=== PATIENT | female | born 1985 | race Caucasian/White ===

== ENCOUNTER 2017-10-20 09:35 | Inpatient (IN) | payer OTHER ==
[2017-10-20] MEDS ORDERED: TUBERCULIN PPD 5 TU/0.1ML SYRINGE (IN PATIENT USE ONLY) ID ONE ×2 (10:29→16:00)
[2017-10-20] MEDS ORDERED: METHYLERGONOVINE MALEATE 0.2 MG/1 ML AMP IM PRN (10:33)
[2017-10-20] MEDS ORDERED: WITCH HAZEL 50% (TUCKS) 40 PAD/JAR PAD TP PRN (10:33)
[2017-10-20] MEDS ORDERED: BENZOCAINE 28 GM HEMORRHOIDAL OINTMENT TP PRN (10:33)
[2017-10-20] MEDS ORDERED: ACETAMINOPHEN 325 MG TABLET (FP) PO PRN (10:33)
[2017-10-20] MEDS ORDERED: BISACODYL 10 MG SUPP.RECT RC PRN (10:33)
[2017-10-20] MEDS ORDERED: BENZOCAINE 20% 57 GM BOTTLE TP PRN (10:33)
[2017-10-20] MEDS ORDERED: IBUPROFEN 600 MG TABLET (FP) PO PRN (10:33)
--- NOTE | 2017-10-20 10:33 | HP ---
Past Medical History - Admission History Source: Patient, Medical Record Limitations to Obtaining History: No Limitations - Past Medical History Cardiovascular: No: HTN, ND Pulmonary: No: Asthma, COPD Gastrointestinal: No: GERD Hepatobiliary: No: Hepatitis B, Hepatitis C Renal/: No: UTI Reproductive: No: Ectopic , Fibroids, PID ...: 2 ...Para: 1 ...Term: 0 ...: 0 ...Spon : 0 ...Induced : 0 Heme/Onc: No: Anemia Infectious Disease: No: HIV, MRSA, STD's Psych: No: Bipolar, Depression Endocrine: No: Diabetes Insipidus, Diabetes Mellitus - Past Surgical History Past Surgical History: Yes: None Hx Myomectomy: No Hx Transabdominal Cerclage: No - Alcohol/Substance Use History of Substance Use: reports: None - Social History Usual Living Arrangement: Yes: With Spouse ADL: Independent History of Recent Travel: No Home Medications - Allergies Allergies/Adverse Reactions: Allergies Allergy/AdvReac Type Severity Reaction Status Date / Time Pertussis Vaccines Allergy Verified 10/13/17 20:51 - Home Medications Home Medications: Ambulatory Orders Vit #76/Iron,Carb/FA [Pnv 29-1 Tablet] 1 each PO DAILY 10/13/17 Review of Systems - Review of Systems Constitutional: reports: No Symptoms Eyes: reports: No Symptoms HENT: reports: No Symptoms Neck: reports: No Symptoms Cardiovascular: reports: No Symptoms Respiratory: reports: No Symptoms Gastrointestinal: reports: No Symptoms Genitourinary: reports: Other (contractions) Breasts: reports: No Symptoms Reported Musculoskeletal: reports: No Symptoms Integumentary: reports: No Symptoms Neurological: reports: No Symptoms Endocrine: reports: No Symptoms Hematology/Lymphatic: reports: No Symptoms Psychiatric: reports: No Symptoms Physical Exam - Maternity Constitutional: Yes: Well Nourished, No Distress, Calm Eyes: Yes: Conjunctiva Clear, EOM Intact HENT: Yes: Atraumatic, Normocephalic Neck: Yes: Supple, Trachea Midline Cardiovascular: Yes: Regular Rate and Rhythm Lungs: Clear to auscultation - Abdominal Exam/OB Number of Fetuses: Single Presentation: Vertex Contractions: Yes Regularity: Regular Intensity: Mod/Strong Category: I Accelerations: Uniform Decelerations: None - Vaginal Exam/OB Vaginal Bleediing: No Dilatation (cm): 9.5 Effacement (%): 100 Amniotic Membrane Status: Bulging Presentation: Vertex/Position Station: -1 - Physical Exam Psychiatric: Yes: Alert, Oriented Hemorrhage Risk Assessment - Risk Factors Medium Risk Factors: Yes: None High Risk Factors: Yes: None Risk Score: 1 Risk Level: Medium Risk Problem List - Problems (1) Active labor at term Code(s): [id number] - Assessment/Plan 32 y/o with SIUP at 39.5 weeks in active labor - AFVSS - FHTS cat 1 - active labor, expectant managment, anticipate - GBS negative
[2017-10-20] MEDS ORDERED: OXYTOCIN 20 UNITS in 0.9% NS 20 UNIT/1,000 ML INFUS.BAG IV SCH (10:45)
[2017-10-20 10:49] VITALS: BMI 29.4
[2017-10-20 11:15] LABS: BASOPHIL 0.3 % (0-2.0); MCH 32.8 pg (25.7-33.7); MCHC 34.8 g/dl (32.0-36.0); MEAN CELL VOLUME 94.2 fl (80-96); MEAN PLT VOLUME 8.3 fl (7.5-11.1); NEUTROPHILS 81.9 % (42.8-82.8); PLATELET COUNT 261 K/MM3 (134-434); WHITE BLOOD COUNT 8.9 K/mm3 (4.0-10.0)
[2017-10-20 11:28] LABS: INR 0.92 (0.82-1.09); PROTHROMBIN TIME (PATIENT) 10.4 SEC (9.98-11.88)
[2017-10-20 11:31] LABS: ACTIVATED PTT 27.7 SECONDS (26.9-34.4)
--- NOTE | 2017-10-20 11:34 | PN ---
Delivery - Delivery Vaginal Delivery: No Problems Type of Anesthesia: Local Episiotomy/Laceration: 2nd degree EBL (cc): 300 Delivery, Single - Stages of Labor Date of Delivery: 10/20/17 Time of Delivery: 11:13 Date Placenta Delivered: 10/20/17 Time Placenta Delivered: :16 Placenta: Yes: Spontaneous - Condition of Top Hat Body Maker/Powerhouse Engineer Present: No Infant Gender: Female Position: OA - 1 Minute Total Score: 9 5 Minutes Total Score: 9 - Feeding Plan Initial Plan: Exclusive throughout hospitalization Remarks - Remarks Remarks: Uncomplicated of baby girl from MARTHA position anterior shoulder (right) delivered with ease along with remainder of cord clamped and cut mouth and nose bulb suctioned 2nd degree laceration repaired with 2-0 chromic in usual fashion baby doing well mom stable sponge and needle count correct after delivery EBL 300
[2017-10-20 11:37] LABS: ANION GAP 11 (8-16); CALCIUM 8.8 mg/dL (8.5-10.1); CO2 20 mmol/L (21-32); CREATININE 0.7 mg/dL (0.55-1.02); GLUCOSE,RANDOM 122 mg/dL (74-106)
--- NOTE | 2017-10-21 07:28 | PN ---
Post Progress Note - Subjective Subjective: Pt seen/evaluated and doing well. no complaints. Type of Delivery: Vital Signs: Vital Signs Temperature 98.4 F 10/21/17 06:00 Pulse Rate 76 10/20/17 21:15 Respiratory Rate 20 10/20/17 21:15 Blood Pressure 128/74 10/20/17 21:15 O2 Sat by Pulse Oximetry (%) Uterus: Yes: Fundus Firm, Fundus below umbilicus Abdomen/GI: Yes: Abdomen soft, Passing flatus, Tolerating PO. No: Abdominal Distention, Tender Lochia: Yes: Rubra Lochia, amount: Small Extremities: Yes: Calves non-tender, Edema (trace b/l LE, nonpitting) Perineum: Yes: Laceration (repaired with 2-0 chromic) Activity: Ambulating - Labs Labs: CBC WBC 8.9 K/mm3 (4.0-10.0) 10/20/17 10:49 RBC 4.17 M/mm3 (3.60-5.2) 10/20/17 10:49 Hgb 13.7 GM/dL (10.7-15.3) 10/20/17 10:49 Hct 39.3 % (32.4-45.2) 10/20/17 10:49 MCV 94.2 fl (80-96) 10/20/17 10:49 MCH 32.8 pg (25.7-33.7) 10/20/17 10:49 MCHC 34.8 g/dl (32.0-36.0) 10/20/17 10:49 RDW 13.0 % (11.6-15.6) 10/20/17 10:49 Plt Count 261 K/MM3 (134-434) 10/20/17 10:49 MPV 8.3 fl (7.5-11.1) 10/20/17 10:49 Neutrophils % 81.9 % (42.8-82.8) 10/20/17 10:49 Lymphocytes % 13.3 % (8-40) 10/20/17 10:49 Monocytes % 4.5 % (3.8-10.2) 10/20/17 10:49 Eosinophils % 0.0 % (0-4.5) 10/20/17 10:49 Basophils % 0.3 % (0-2.0) 10/20/17 10:49 Problem List - Problems (1) Active labor at term Code(s): TTR4008 - (2) Vaginal delivery Code(s): O80 - ENCOUNTER FOR FULL-TERM UNCOMPLICATED DELIVERY (3) Normal vaginal delivery Code(s): O80 - ENCOUNTER FOR FULL-TERM UNCOMPLICATED DELIVERY Assessment/Plan 32 y/o PPD#1 s/p normal and doing well - AFVSS - CBC pending this a.m. - regular diet - encourage ambulation - PO pain meds - routine care
[2017-10-21 07:49] LABS: BASOPHIL 0.2 % (0-2.0); EOSINOPHIL 0.5 % (0-4.5); MCH 33.1 pg (25.7-33.7); MCHC 34.8 g/dl (32.0-36.0); MEAN CELL VOLUME 95.3 fl (80-96); MEAN PLT VOLUME 7.9 fl (7.5-11.1); NEUTROPHILS 70.3 % (42.8-82.8); PLATELET COUNT 210 K/MM3 (134-434); RDW 12.9 % (11.6-15.6); WHITE BLOOD COUNT 9.3 K/mm3 (4.0-10.0)
[2017-10-21] MEDS: PRENATAL VITAMINS W/ FOLIC ACID TABLET (FP) PO SCH (10:17)
[2017-10-21] MEDS ORDERED: SENNOSIDES/DOCUSATE COMBO (SENNA PLUS) TABLET (UD) PO PRN (22:00)
[2017-10-22 08:32] VITALS: BP 117/66; PULSE 65; TEMP 97.8
[2017-10-22] MEDS: PRENATAL VITAMINS W/ FOLIC ACID TABLET (FP) PO SCH (09:07)
--- NOTE | 2017-10-22 19:43 | DS ---
Physical Exam-[facility] PPM CONSULTANT Vital Signs: Vital Signs Temperature 97.8 F 10/22/17 08:30 Pulse Rate 65 10/22/17 08:30 Respiratory Rate 20 10/22/17 08:30 Blood Pressure 117/66 10/22/17 08:30 O2 Sat by Pulse Oximetry (%) Labs: CBC, BMP 10/21/17 06:20 10/20/17 10:49 Delivery - Delivery Vaginal Delivery: No Problems Type of Anesthesia: Local Episiotomy/Laceration: 2nd degree EBL (cc): 300 Delivery, Single - Stages of Labor Date 1st Stage Initiatied: 10/20/17 Time 1st Stage Initiated: 01:00 Date 2nd Stage Initiated: 10/20/17 Time 2nd Stage Initiated: 10:45 Date of Delivery: 10/20/17 Time of Delivery: 11:13 Time Placenta Delivered: 11:16 Placenta: Yes: Spontaneous - Condition of Infant Commercial Development Manager/Right Of Way Cutter Present: No Infant Gender: Female Weight: 7 lb 14 oz Position: OA Total Hours ROM (Hrs/Mins): 30M - 1 Minute Total Score: 9 5 Minutes Total Score: 9 - Feeding Plan Initial Plan: Exclusive throughout hospitalization Discharge Summary Reason For Visit: LABOR Condition: Good - Instructions Diet, Activity, Other Instructions: Physical activity Resume your normal everyday activity as tolerated no heavy lifting or exercise until seen by your doctor. You may walk unlimited amounts and climb stairs. You may resume driving the car when you feel safe and comfortable behind the wheel. No sexual activity as instructed for 6 weeks. You did receive stitches that will dissolve on their own over time. Do not attempt to remove your stitches. You may shower daily, do not soak/submerge in baths/pools/tubs for approx 4-6 weeks or until cleared by your doctor. Diet There are no dietary restrictions. Eat healthy, high-fiber foods. Drink 6 to 8 glasses of liquid each day. This will assist in keeping your bowels regular. Pain management You may take Tylenol or Ibuprofen (for example, Motrin, Advil etc.) as needed for pain. . Call MD for any of the following: Severe pain not relieved by medication Fever of 101 or higher Excessive bleeding or drainage on dressing Inability to urinate return to office in 4-6 weeks. call for appointment. Referrals: Tabitha Higuera DO [Staff Physician] - 1 Month (4-6 weeks after discharge) Disposition: HOME - Home Medications Comprehensive Discharge Medication List: Ambulatory Orders Vit #76/Iron,Carb/FA [Pnv 29-1 Tablet] 1 each PO DAILY 10/13/17 Ibuprofen [Motrin -] 600 mg PO QID PRN #28 tablet 10/20/17
== END 2017-10-22 11:00 | disposition home or self-care (01) | DRG 775 ==
LOC: JLDR 09:35 → J3W 12:45
PROVIDERS: ADMIT Obstetrics & Gynecology; ATTEND Obstetrics & Gynecology
PROC: 10E0XZZ Delivery of Products of Conception, External Approach (ICD-10-PCS; principal; 2017-10-20)
PROC: 0KQM0ZZ Repair Perineum Muscle, Open Approach (ICD-10-PCS; 2017-10-20)
DX: O70.1 Second degree perineal laceration during delivery (principal); Z37.0 Single live birth; Z3A.39 39 weeks gestation of pregnancy
CPT/HCPCS: 36415; 59409; 80048; 85025; 85610; 85730; 86593; 86850; 86900; 86901

== ENCOUNTER 2019-05-21 04:46 | Day surgery (SDC) | payer OTHER ==
[2019-05-05 14:59] VITALS: BMI 24.9
[~2019-05-21 04:46] MED LIST: BUPIVACAINE HCL/PF (5 MG/ML) 30 ML VIAL IJ ONE
[2019-05-21] MEDS ORDERED: fentaNYL CITRATE 250 MCG/5 ML VIAL ONE (09:13)
[2019-05-21] MEDS ORDERED: MIDAZOLAM HCL 2 MG/2 ML SINGLE DOSE VIAL ONE (09:13)
[2019-05-21] MEDS ORDERED: PROPOFOL 20 ML ONE (09:13)
[2019-05-21] MEDS ORDERED: DEXAMETHASONE SOD PHOSPHATE 4 MG/1 ML VIAL ONE (09:15)
[2019-05-21] MEDS ORDERED: LIDOCAINE HCL/PF 2% SDV 5ML VIAL ONE (09:15)
[2019-05-21] MEDS ORDERED: KETOROLAC TROMETHAMINE 30 MG/1 ML VIAL ONE (09:15)
[2019-05-21] MEDS ORDERED: ROCURONIUM BROMIDE 50 MG/5 ML SYRINGE ONE (09:15)
[2019-05-21] MEDS ORDERED: DESFLURANE GAS 240 ML BOTTLE IH ONE (09:22)
[2019-05-21] MEDS ORDERED: LIDOCAINE HCL 2% JELLY 10 ML CARTRIDGE ONE (09:23)
[2019-05-21] MEDS ORDERED: ACETAMINOPHEN 325 MG TABLET (FP) PO PRN (09:37)
[2019-05-21] MEDS ORDERED: IBUPROFEN 800 MG/8 ML IJ IVPB PRN (09:37)
--- NOTE | 2019-05-21 09:37 | HP ---
History & Physical Update - History History: No Change - Physical Physical: No Change - Assessment Assessment: No Change - Plan Plan: No Change (Agree with H&P from 05/05/19, for laparoscopic ovarian cystectomy (right side) due to ovarian cyst)
[2019-05-21] MEDS ORDERED: BUPIVACAINE HCL/PF 0.5% (5MG/ML) 10 ML VIAL ONE (09:42)
[2019-05-21] MEDS ORDERED: LACTATED RINGERS SOLUTION 1,000 ML IV SCH ×2 (09:45→10:15)
[2019-05-21] MEDS ORDERED: ONDANSETRON 4 MG/2 ML VIAL IVPUSH PRN (10:04)
[2019-05-21] MEDS ORDERED: oxyCODONE HCL 5 MG TABLET PO PRN ×2 (10:04)
[2019-05-21] MEDS ORDERED: NEOSTIGMINE METHYLSULFATE 0.5 MG/ML - 10 ML MDV ONE (10:09)
[2019-05-21] MEDS ORDERED: GLYCOPYRROLATE 0.2 MG/1 ML VIAL ONE (10:09)
[2019-05-21] MEDS ORDERED: BUPIVACAINE HCL/PF (5 MG/ML) 30 ML VIAL IJ ONE (11:01)
--- NOTE | 2019-05-21 11:31 | OP ---
Operative Note - Note: Operative Date: 05/21/19 Pre-Operative Diagnosis: right ovarian cyst Operation: right ovarian cystectomy Findings: as dictated Post-Operative Diagnosis: Same as Pre-op Surgeon: Tabitha Higuera Comic Book Writer: Birdie Hill Anesthesiologist/FUR BLOWING MACHINE ATTENDANT: Pardeep Gage Anesthesia: General, Local Specimens Removed: right ovarian cyst Estimated Blood Loss (mls): 50 (ml) Drains, Volume Out (mls): 100 (ml clear urine) Fluid Volume Replaced (mls): 800 (ml LR) Operative Report Dictated: Yes
--- NOTE | 2019-05-21 11:32 | SURG ---
Surgery Medical Appointment Clerk Note Medical Appointment Clerk: Birdie Hill PA-C (Suzy) Date of Service: 05/21/19 Diagnosis: right ovarian cyst Procedure: right ovarian cystectomy I was present for the entirety of the operative procedure. For further detail, please refer to operative report. Visit type - Case Type Case Type: Scheduled - Emergency Emergency Visit: No - New patient This patient is new to me today: Yes Date on this admission: 05/21/19 - Critical Care Critical Care patient: No
[2019-05-21] MEDS ORDERED: ACETAMINOPHEN 1000 MG/100 ML VIAL (NON FORMULARY) IVPB ONE (11:55)
[2019-05-21] MEDS ORDERED: ACETAMINOPHEN INJECTION 100 ML IVPB ONE (11:56)
[2019-05-21 12:51] VITALS: TEMP 98
[2019-05-21 16:34] VITALS: BP 124/72; PULSE 60
--- NOTE | 2019-05-23 11:37 | PATH ---
Surgical Pathology Report Patient Name: DESIRAE LLAMAS [facility]. Rec. #: [id number] /Age/Gender: 1985 (Age: 33) / F Account: [id number] Location: [facility] SURGICAL Taken: 05/21/2019 Received: 05/21/2019 Reported: 05/23/2019 Physicians: Matilde Pérez M.D. Specimen(s) Received RIGHT OVARIAN CYST Clinical History Right ovarian cyst Final Diagnosis CYST, RIGHT OVARY, CYSTECTOMY: MUCINOUS CYSTADENOMA. Electronically Signed Halima Holder M.D. Gross Description Received in formalin labeled "right ovarian cyst," is a 6.5 x 5.0 x 1.0 cm focally disrupted cyst wall. The outer surface is nunez-pink and smooth. The inner lining is nunez and smooth. No excrescences are identified. No normal ovarian parenchyma is identified. Sales Lead sections are submitted in 6 cassettes. /05/21/2019 saudi/05/21/2019
--- NOTE | 2019-05-24 11:01 | OP ---
DATE OF OPERATION: 05/21/2019 PREOPERATIVE DIAGNOSIS: Right ovarian cyst. POSTOPERATIVE DIAGNOSIS: Right ovarian cyst. PROCEDURE: Laparoscopic right ovarian cystectomy. SURGEON: Tabitha Higuera DO TELECOM MANAGER: JOO Vieira ANESTHESIA: RAFAELA Aguilar, who provided general anesthesia. FINDINGS: Included large right ovarian cyst. ESTIMATED BLOOD LOSS: 50 mL. COUNT: Sponge, needle, and instrument count correct. DISPOSITION: Stable to PACU. BRIEF HISTORY AND PROCEDURE: Patient is a 33-year-old female who had been seen in the office with complaints of pelvic pressure and found to have a large, persistent, right ovarian cyst. The patient was counseled on her options and elected to undergo laparoscopic removal. The patient signed consents for the procedure in the office and then was admitted to [facility] on May 21, 2019, where consents were reconfirmed. She was taken back to the operating room, given general anesthesia, prepped and draped in the lithotomy position. Ghosh catheter was placed under sterile conditions, and a hard timeout was performed. A 5-mm skin incision was created in the umbilicus, and a Veress needle was placed intra-abdominally. The abdomen was insufflated with CO2 gas. A 5-mm trocar was then inserted into the incision, and using the optical trocar, an examination of the pelvis revealed normal left ovary, normal uterus, and a large right ovarian cyst. An incision was made using the EndoShears on the ovary, and the cyst wall was identified and grasped and bluntly dissected away from the ovarian stroma. During this process, the cyst was incidentally ruptured, and clear fluid was noted. At this time, the ovarian cyst wall was bluntly dissected and from the ovarian stroma, and the cyst was removed in its entirety in a single specimen from the right lower quadrant port which was a 12-mm port in the right lower quadrant, which had been placed earlier under direct visualization. The surgical site and ovarian surgical bed were irrigated, and any areas of bleeding were cauterized with the LigaSure device. Surgicel was placed in the ovary to achieve hemostasis. The pelvis was copiously suctioned and irrigated. The right trocar in the lower quadrant was removed, and the incision was reapproximated using 0 Vicryl using the Terrance-Patrice device under direct visualization. The abdomen was desufflated. Remaining trocars were removed. The skin was reapproximated using 4-0 Biosyn and skin glue. Patient was awoken from anesthesia. Sponge, needle, and instrument count was correct. Patient tolerated the procedure well, was recovering in stable condition in the PACU after the procedure. TABITHA HIGUERA DO /[id number]
== END 2019-05-21 14:15 | disposition home or self-care (01) ==
LOC: JASU-SURG 04:46
PROVIDERS: ATTEND Obstetrics & Gynecology
PROC: 0UB04ZZ Excision of Right Ovary, Percutaneous Endoscopic Approach (ICD-10-PCS; principal; 2019-05-21 10:00)
DX: N83.201 Unspecified ovarian cyst, right side (principal)
CPT/HCPCS: 36415; 84703; 86850; 86900; 86901; 88305-TC; 94760; J0131